=== PATIENT | male | born 1975 | race Caucasian/White ===

== ENCOUNTER 2017-12-11 09:37 | Emergency (ER) | payer OTHER ==
[~2017-12-11] VITALS: Ht 177.8 cm; Wt 122.9 kg
[2017-12-11] MEDS ORDERED: LATUDA60 MG PO (09:45)
[2017-12-11] MEDS ORDERED: PROZAC20 MG PO (09:46)
[2017-12-11] MEDS ORDERED: XANAX1 MG PO (09:46)
[2017-12-11 10:15] LABS: ANION GAP 14 mmol/L (7-16); APTT 24.3 Seconds (25.0-31.3); BUN 11 mg/dL (7-18); CHLORIDE 101 mmol/L (98-107); CO2 26 mmol/L (21-32); CREATININE 1.3 mg/dL (0.6-1.3); GLUCOSE 100 mg/dL (70-99); INR 1.1; POTASSIUM 3.6 mmol/L (3.5-5.1); PROTIME 10.7 Seconds (9.20-11.50); SODIUM 141 mmol/L (136-145)
[2017-12-11 10:25] LABS: ABSOLUTE EOSINOPHILS 0.1 thou/uL (0.0-0.7); ABSOLUTE LYMPHOCYTES 1.8 thou/uL (0.8-5.3); ABSOLUTE MONOCYTES 0.3 thou/uL (0.0-1.2); BASOPHILS 0.8 %; EOSINOPHILS 1.9 %; HEMATOCRIT 42.9 % (42.0-52.0); HEMOGLOBIN 15.1 gm/dL (14.0-18.0); MCH 33.3 pg (26.0-34.0); MCHC 35.3 g/dL (28.0-37.0); MCV 94.4 fL (80.0-100.0); MONOCYTES 6.3 %; MPV 6.9 fl. (7.2-11.1); NUCLEATED RBCS 0 /100WBC; PLATELET COUNT* 186 thou/uL (150-400); RBC 4.54 mil/uL (4.50-6.00); RDW-CV 12.4 % (10.5-14.5); WBC 5.3 thou/uL (4.0-11.0)
[2017-12-11 10:34] LABS: ALBUMIN 4.2 g/dL (3.4-5.0); ALKALINE PHOSPHATASE 70 U/L (46-116); CK-MB MASS 0.6 ng/mL (<0.5-3.6); LIPASE 222 U/L (73-393); MAGNESIUM 1.6 mg/dL (1.8-2.4); NT-PRO BRAIN NAT PEPTIDE < 5 pg/mL (<300); SGOT 33 U/L (15-37); SGPT 43 U/L (30-65); TOTAL BILIRUBIN 0.5 mg/dL (<0.1-1.0); TROPONIN-I LEVEL <0.06 ng/mL (<0.06)
[2017-12-11 10:44] VITALS: BP 154/93
--- NOTE | 2017-12-11 15:47 | EKG ---
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
== END 2017-12-11 10:45 | disposition home or self-care (01) ==
LOC: M.ERS 09:37
PROVIDERS: Family Medicine
DX: F41.0 Panic disorder [episodic paroxysmal anxiety] (principal); F32.9 Major depressive disorder, single episode, unspecified; I10 Essential (primary) hypertension; Z86.73 Personal history of transient ischemic attack (TIA), and cerebral infarction without residual deficits